=== PATIENT | male | born 1980 | race Two or more races ===

== ENCOUNTER 2024-12-07 15:53 | Emergency (ER) | payer OTHER ==
[~2024-12-07] VITALS: Ht 167.6 cm; Wt 74.8 kg
[2024-12-07] MEDS: IV NS 0.9% 1,000 ML BAG IV ONE (16:40)
[2024-12-07 16:48] LABS: PLATELET COUNT (AUTO) 302 K/uL (150-450); RED BLOOD CELL COUNT(AUTO) 5.93 MIL/uL (4.5-6.0); RED CELL DISTRIBUTION WIDTH 12.8 % (11.5-15.0); WHITE BLOOD COUNT (AUTO) 6.9 K/uL (4.3-11.0)
[2024-12-07] MEDS ORDERED: ACTIVATED CHARCOAL 25 GM/120 ML TUBE ONE (16:52)
[2024-12-07] MEDS ORDERED: CHARCOAL/SORBITOL SOLUTION 25 G/120 ML TUBE ONE (16:55)
[2024-12-07] MEDS: CHARCOAL/SORBITOL SOLUTION 25 G/120 ML TUBE PO ONE (17:00)
[2024-12-07] MEDS: ACTIVATED CHARCOAL 25 GM/120 ML TUBE PO STA (17:01)
[2024-12-07 17:04] LABS: CREATINE KINASE, TOTAL 116 U/L (39-308)
[2024-12-07 17:05] LABS: ASPARTATE AMINOTRANSFERASE 29 U/L (15-37); CALCIUM, SERUM 9.1 mg/dL (8.5-10.1); CREATININE 1.0 mg/dL (0.6-1.3); SODIUM SERUM 140 mmol/L (136-145); TOTAL PROTEIN, SERUM 7.7 g/dL (6.4-8.2); UREA NITROGEN, BLOOD 15 mg/dL (7-18)
[2024-12-07 17:08] LABS: ALCOHOL, BLOOD < 3 mg/dL (0-10)
[2024-12-07 19:55] LABS: APPEARANCE,URINE CLEAR (CLEAR); BLOOD, URINE TRACE-INTA Ery/uL (NEGATIVE); LEUKOCYTE ESTERASE ,URINE NEGATIVE (NEGATIVE); NITRITE, URINE NEGATIVE (NEGATIVE); UGLUCOSE NEGATIVE (NEGATIVE)
[2024-12-07 20:12] LABS: ADD URINE CULTURE NO
[2024-12-07 20:13] LABS: AMPHETAMINE, URINE NEGATIVE (NEGATIVE); BARBITURATE, URINE NEGATIVE (NEGATIVE); BENZODIAZEPINE, URINE NEGATIVE (NEGATIVE); COCCAINE, URINE NEGATIVE (NEGATIVE); OPIATE, URINE NEGATIVE (NEGATIVE); SQUAMOUS EPITHELIAL CELL,UR None Seen /HPF (None Seen)
[2024-12-07 20:14] LABS: CANNABINOID, URINE POSITIVE (NEGATIVE)
[2024-12-08 01:34] VITALS: TEMP 98.1
[2024-12-08 02:27] VITALS: BP 117/77; O2SAT 98
== END 2024-12-08 02:28 | disposition home or self-care (01) ==
LOC: ER 16:19
DX: T14.91XA Suicide attempt, initial encounter (principal); I44.4 Left anterior fascicular block; F41.9 Anxiety disorder, unspecified; F32.A Depression, unspecified; Z79.899 Other long term (current) drug therapy; Y92.89 Other specified places as the place of occurrence of the external cause
CPT/HCPCS: 99285; 93005; 85025; 80048; 82550; 80076; 81001; 36415; 80143; 80320; 80307; J7030; G0480